=== PATIENT | female | born 1930 ===

== ENCOUNTER 2019-01-03 18:36 | Inpatient (IN) | payer MEDICARE, MEDICAID ==
[2019-01-03 20:54] LABS: VENOUS BLOOD GAS PCO2 59 mmHg (40-60); VENOUS BLOOD GAS PO2 38 mm/Hg (30-55); VENOUS BLOOD PH 7.36 (7.32-7.43)
--- NOTE | 2019-01-03 21:13 | ED PDOC ---
HPI: Influenza Time Seen by Provider: 01/03/19 19:35 Chief Complaint: Flu-like Symptoms Chief Complaint (Provider): Flu-like Symptoms History Per: Family Exam Limitations: clinical condition Additional complaint(s):: Gunjan lee is a 88 year old female with a past medical history of HTN and arthritis, who presents to the emergency department complaining of cough, fever that started today. History was obtained by family, as patient is a poor historian is is a bit confused. Family noticed patient to be a bit confused, coughing, subjective fevers and chest pain that started earlier today. Patient currently denies having any chest pain. PMD: Rajiv Moore Past Medical History Reviewed: Historical Data, Nursing Documentation, Vital Signs Vital Signs: Last Vital Signs Temp 100.9 F H 01/03/19 18:40 Pulse 81 01/03/19 18:40 Resp 18 01/03/19 18:40 BP 184/75 H 01/03/19 18:40 Pulse Ox 100 01/03/19 18:40 - Medical History PMH: Arthritis, HTN Other PMH: IBS - Surgical History Surgical History: Appendectomy, Cholecystectomy, - Family History Family History: States: Unknown Family Hx - Home Medications Home Medications: Ambulatory Orders Medication Instructions Recorded RX: Donepezil HCl [Aricept Odt] 10 mg PO DAILY 01/03/19 RX: Gabapentin [Neurontin] 100 mg PO BID 01/03/19 RX: LORazepam [Ativan] 2 mg PO BID 01/03/19 RX: Meclizine [Antivert] 12.5 mg PO BID PRN 01/03/19 RX: Metoprolol Succinate XL 50 mg PO DAILY 01/03/19 [Toprol XL] RX: Oxybutynin [Ditropan Tab] 5 mg PO DAILY 01/03/19 RX: Oxybutynin [Ditropan Tab] 10 mg PO HS 01/03/19 RX: Primidone [Mysoline] 50 mg PO QID 01/03/19 RX: Sucralfate [Carafate] 1 gm PO QID 01/03/19 RX: traZODone [Desyrel] 150 mg PO DAILY 01/03/19 Venlafaxine HCl [Venlafaxine HCl 150 mg PO DAILY 01/03/19 ER] - Allergies Allergies/Adverse Reactions: Allergies Allergy/AdvReac Type Severity Reaction Status Date / Time No Known Allergies Allergy Verified 01/03/19 18:43 Review of Systems ROS Statement: Except As Marked, All Systems Reviewed And Found Negative Constitutional: Positive for: Fever, Other (confusion) Cardiovascular: Positive for: Chest Pain Respiratory: Positive for: Cough Physical Exam - Reviewed Nursing Documentation Reviewed: Yes Vital Signs Reviewed: Yes - Physical Exam Appears: Positive for: Non-toxic, No Acute Distress Head Exam: Positive for: ATRAUMATIC, NORMOCEPHALIC Neck: Positive for: Normal, Painless ROM, Supple Cardiovascular/Chest: Positive for: Regular Rate, Rhythm. Negative for: Murmur Respiratory: Positive for: Normal Breath Sounds. Negative for: Respiratory Distress Gastrointestinal/Abdominal: Positive for: Normal Exam, Soft. Negative for: Tenderness Neurologic/Psych: Positive for: Alert, Oriented (x3) Medical Decision Making Medical Decision Making: Time: 2008 Impression: Fever, chest pain, and cough Differential diagnosis includes but is not limited to PNA, sepsis and possible UTI Plan: --Head CT without contrast --Venous Blood gas --EKG --CMP --Magnesium --phosphorous --troponin I --CBC with differential --PTT --PT --Chest xray --Blood culture --urine culture --steel pourer helper --Vital signs Q15 M --Urinary straight catheterization --Influenza A B --Urinalysis Time: 2246 CT FINDINGS: BRAIN Chronic periventricular and subcortical microvascular disease is seen. VENTRICLES: There is generalized parenchymal atrophy noted as demonstrated by symmetrical dilatation of ventricles and sulci. ORBITS: The orbits are unremarkable. SINUSES AND MASTOIDS: The paranasal sinuses and mastoid air cells are clear. BONES: No fracture. SOFT TISSUES: Unremarkable. MISCELLANEOUS: No acute intracranial pathology. IMPRESSION: 1. There is generalized parenchymal atrophy noted as demonstrated by symmetrical dilatation of ventricles and sulci. 2. Chronic periventricular and subcortical microvascular disease is seen. 3. No acute intracranial pathology. Time: 2255 Spoke with hospitalist, for admission to med surg for possible aspirations vs. PNA. Chest xray: as reviewed by me, questionable bilateral lower basal infiltrates. Scribe Attestation: Documented by Eduar Chandler, acting as a scribe for Derek Domingo MD. Provider Scribe Attestation: All medical record entries made by the Scribe were at my direction and personally dictated by me. I have reviewed the chart and agree that the record accurately reflects my personal performance of the history, physical exam, medical decision making, and the department course for this patient. I have also personally directed, reviewed, and agree with the discharge instructions and disposition. - Laboratory Results Result Diagrams: 01/03/19 21:10 01/03/19 21:10 Lab Results: pO2 38 mm/Hg (30-55) 01/03/19 20:51 VBG pH 7.36 (7.32-7.43) 01/03/19 20:51 VBG pCO2 59 mmHg (40-60) 01/03/19 20:51 VBG HCO3 28.9 mmol/L 01/03/19 20:51 VBG Total CO2 35.1 mmol/L (22-28) H 01/03/19 20:51 VBG O2 Sat (Calc) 75.2 % (40-65) H 01/03/19 20:51 VBG Base Excess 6.0 mmol/L (0.0-2.0) H 01/03/19 20:51 VBG Potassium 3.9 mmol/L (3.6-5.2) 01/03/19 20:51 Sodium 132.0 mmol/L (132-148) 01/03/19 20:51 Chloride 98.0 mmol/L (98-107) 01/03/19 20:51 Glucose 121 mg/dL (65-105) H 01/03/19 20:51 Lactate 1.2 mmol/L (0.7-2.1) 01/03/19 20:51 FiO2 21.0 % 01/03/19 20:51 - ECG O2 Sat by Pulse Oximetry: 100 - Critical Care Total Time (In Min): 120 Disposition - Clinical Impression Clinical Impression: Pneumonia - Patient ED Disposition Is Patient to be Admitted: Yes Discussed With DrDeisy: Inocencio Crook Doctor Will See Patient In The: ED Counseled Patient/Family Regarding: Studies Performed, Diagnosis - Disposition Disposition Time: 22:30 Condition: FAIR Forms: [employer] (Uz[place]) - Pt Status Changed To: Hospital Disposition Of: Inpatient - Admit Certification Admit to Inpatient:: After my assessment, the patient will require hospitalization for at least two midnights. This is because of the severity of symptoms shown, intensity of services needed, and/or the medical risk in this patient being treated as an outpatient. - POA Present On Arrival: None Curb-65 Severity Score - CURB-65 Severity Score Confusion: No Bun >19mg/dl (>7mmol/L): No Respiratory Rate greater than/equal to 30: No Systolic BP <90 or Diastolic BP less than/equal 60mmHg: No Age >64: Yes Curb-65 Score: 1 Percentage 30-day mortality: 2.7%
[2019-01-03 21:23] LABS: BASO % 0.2 % (0.0-2.0); EOS % 0.1 % (0.0-4.0); HEMOGLOBIN 12.2 g/dL (12.0-16.0); LYMPH # 0.3 K/uL (1.0-4.3); MEAN CELL VOLUME 92.8 fl (81.0-99.0); MEAN CORPUSCULAR HEMOGLOBIN 31.4 pg (27.0-31.0); MEAN CORPUSCULAR HGB CONC 33.9 g/dL (33.0-37.0); MEAN PLATELET VOLUME 9.7 fl (7.2-11.7); MONO # 0.3 K/uL (0.0-0.8); MONO % 4.7 % (0.0-10.0); NEUT # 6.2 K/uL (1.8-7.0); PLATELET COUNT 233 K/uL (130-400); RBC 3.89 Mil/uL (3.80-5.20); RED CELL DISTRIBUTION WIDTH 14.8 % (11.5-14.5); WHITE BLOOD COUNT 6.8 K/uL (4.8-10.8)
[2019-01-03 21:25] LABS: ALB/GLOB RATIO 1.2 (1.0-2.1); ALBUMIN 4.1 g/dL (3.5-5.0); BLOOD UREA NITROGEN 12 mg/dl (7-17); CALCIUM 9.6 mg/dL (8.4-10.2); GFR NON-AFRICAN AMERICAN > 60
[2019-01-03 21:28] LABS: ALT/SGPT 15 U/L (9-52); AST/SGOT 39 U/L (14-36)
[2019-01-03] MEDS ORDERED: Sodium Chloride 0.9% 1,000 ML IV STA (21:40)
[2019-01-03] MEDS ORDERED: Azithromycin 500 MG in Sodium Chloride 0.9% 250 ML IVPB STA (21:52)
[2019-01-03 22:01] LABS: SQUAMOUS EPITHIAL 1 /hpf (0-5); URINE BILIRUBIN NEGATIVE (NEGATIVE); URINE BLOOD MODERATE (NEGATIVE); URINE CLARITY SLIGHTY-CLOUDY (Clear); URINE COLOR YELLOW (YELLOW); URINE GLUCOSE (UA) NEG (NEGATIVE); URINE LEUKOCYTE ESTERASE NEG Leu/uL (Negative); URINE PROTEIN 30 mg/dL (NEGATIVE); URINE UROBILINOGEN 0.2-1.0 mg/dL (0.2-1.0)
[2019-01-03 22:03] LABS: INR 1.1; PROTHROMBIN TIME 12.6 Seconds (9.8-13.1)
[2019-01-03 22:05] LABS: PARTIAL THROMBOPLASTIN TIME 28.5 Seconds (25.6-37.1)
[2019-01-03] MEDS ORDERED: cefTRIAXone (Rocephin) 1 gm Inj ONE (22:15)
[2019-01-03 22:20] LABS: BANDS 1 % (0-2); LYMPHOCYTE 6 % (20-50); MONOCYTE 3 % (0-10); NEUTROPHIL 90 % (42-75); PLATELET ESTIMATE NORMAL (NORMAL); TOTAL CELLS COUNTED 100
[2019-01-03 22:21] LABS: HYPOCHROMIC SLIGHT; MICROCYTOSIS SLIGHT; OVALOCYTES SLIGHT
[2019-01-03] MEDS ORDERED: Piperacillin/Tazobact 3.375 GM in Sodium Chloride 0.9% 100 ML IVPB STA (22:53)
[2019-01-03] MEDS ORDERED: Piperacillin/Tazobact 3.375 gm Inj IVPB ONE (23:00)
--- NOTE | 2019-01-04 00:25 | CP.PCM.HP ---
<Vipul Smart - Last Filed: 01/04/19 02:42> History of Present Illness - History of Present Illness History of Present Illness: Pt is an 88 y/o female with hx of Dementia, Depression, IBS, HTN, OA, Chronic Cough, Urinary Incontinence brought to ED by daughter who stated patient had a worsening non productive cough for the past few days associated with fevers and chills. Daughter noticed she was very lethargic and slightly confused today. Pt denies any chest pain, LE edema, orthopnea, dysuria, recent travel, sick contacts. PMD: Rajiv Moore PMHX: Dementia, Depression, IBS, HTN, OA, Chronic Cough, Urinary Incontinence SurgHx: Choleycystectomy FMHx: none Social: Walks with waker, lives at home with family, non smoker Present on Admission - Present on Admission Any Indicators Present on Admission: No Past Patient History - Past Social History Smoking Status: Never Smoked - CARDIAC Hx Hypertension: Yes - MUSCULOSKELETAL/RHEUMATOLOGICAL Hx Arthritis: Yes - GASTROINTESTINAL Other/Comment: ibs - PSYCHIATRIC Hx Substance Use: No - SURGICAL HISTORY Hx Appendectomy: Yes Hx Cholecystectomy: Yes - ANESTHESIA Hx Anesthesia: Yes Meds Allergies/Adverse Reactions: Allergies Allergy/AdvReac Type Severity Reaction Status Date / Time No Known Allergies Allergy Verified 01/03/19 18:43 Physical Exam - Constitutional Appears: No Acute Distress - Head Exam Head Exam: NORMAL INSPECTION - Eye Exam Eye Exam: Normal appearance - ENT Exam ENT Exam: Mucous Membranes Moist - Neck Exam Neck exam: Positive for: Full Rom - Respiratory Exam Respiratory Exam: Prolonged Expiratory Phase, Rales (BL lower lung bases). absent: Accessory Muscle Use, Wheezes, Stridor - Cardiovascular Exam Cardiovascular Exam: REGULAR RHYTHM - GI/Abdominal Exam GI & Abdominal Exam: Normal Bowel Sounds, Soft. absent: Tenderness - Extremities Exam Extremities exam: Positive for: pedal edema (+1) - Neurological Exam Neurological exam: Alert, Oriented x3 - Skin Skin Exam: Normal Color Results - Vital Signs Recent Vital Signs: Last Vital Signs Temp 100.7 F H 01/03/19 22:12 Pulse 81 01/03/19 18:40 Resp 18 01/03/19 18:40 BP 184/75 H 01/03/19 18:40 Pulse Ox 100 01/03/19 23:55 - Labs Result Diagrams: 01/03/19 21:10 01/03/19 21:10 Labs: Laboratory Results - last 24 hr 01/03/19 01/03/19 01/03/19 20:51 21:08 21:10 WBC 6.8 RBC 3.89 Hgb 12.2 Hct 36.1 MCV 92.8 MCH 31.4 H MCHC 33.9 RDW 14.8 H Plt Count 233 MPV 9.7 Neut % (Auto) 91.0 H Lymph % (Auto) 4.0 L [place] % (Auto) 4.7 Eos % (Auto) 0.1 Baso % (Auto) 0.2 Neut # (Auto) 6.2 Lymph # (Auto) 0.3 L [place] # (Auto) 0.3 Eos # (Auto) 0.0 Baso # (Auto) 0.0 Neutrophils % (Manual) 90 H Band Neutrophils % 1 Lymphocytes % (Manual) 6 L Monocytes % (Manual) 3 Platelet Estimate Normal Hypochromasia (manual) Slight Microcytosis (manual) Slight Ovalocytes Slight PT INR APTT pO2 38 VBG pH 7.36 VBG pCO2 59 VBG HCO3 28.9 VBG Total CO2 35.1 H VBG O2 Sat (Calc) 75.2 H VBG Base Excess 6.0 H VBG Potassium 3.9 Sodium 132.0 Chloride 98.0 Glucose 121 H Lactate 1.2 FiO2 21.0 Potassium Carbon Dioxide Anion Gap BUN Creatinine Est GFR ( Amer) Est GFR (Non-Af Amer) Random Glucose Calcium Phosphorus Magnesium Total Bilirubin AST ALT Alkaline Phosphatase Troponin I Total Protein Albumin Globulin Albumin/Globulin Ratio Venous Blood Potassium 3.9 Urine Color Urine Clarity Urine pH Ur Specific [place] Urine Protein Urine Glucose (UA) Urine Ketones Urine Blood Urine Nitrate Urine Bilirubin Urine Urobilinogen Ur Leukocyte Esterase Urine RBC (Auto) Urine Microscopic WBC Ur Squamous Epith Cells Influenza Typ A,B (EIA) Negative for flu a/b 01/03/19 01/03/19 01/03/19 21:10 21:53 21:53 WBC RBC Hgb Hct MCV MCH MCHC RDW Plt Count MPV Neut % (Auto) Lymph % (Auto) [place] % (Auto) Eos % (Auto) Baso % (Auto) Neut # (Auto) Lymph # (Auto) [place] # (Auto) Eos # (Auto) Baso # (Auto) Neutrophils % (Manual) Band Neutrophils % Lymphocytes % (Manual) Monocytes % (Manual) Platelet Estimate Hypochromasia (manual) Microcytosis (manual) Ovalocytes PT 12.6 INR 1.1 APTT 28.5 pO2 VBG pH VBG pCO2 VBG HCO3 VBG Total CO2 VBG O2 Sat (Calc) VBG Base Excess VBG Potassium Sodium 134 Chloride 94 L Glucose Lactate FiO2 Potassium 4.4 Carbon Dioxide 29 Anion Gap 15 BUN 12 Creatinine 0.8 Est GFR ( Amer) > 60 Est GFR (Non-Af Amer) > 60 Random Glucose 116 H Calcium 9.6 Phosphorus 3.9 Magnesium 1.9 Total Bilirubin 0.6 AST 39 H ALT 15 Alkaline Phosphatase 107 Troponin I 0.0980 Total Protein 7.5 Albumin 4.1 Globulin 3.4 Albumin/Globulin Ratio 1.2 Venous Blood Potassium Urine Color Yellow Urine Clarity Slighty-cloudy Urine pH 7.0 Ur Specific [place] 1.018 Urine Protein 30 Urine Glucose (UA) Neg Urine Ketones Trace Urine Blood Moderate Urine Nitrate Negative Urine Bilirubin Negative Urine Urobilinogen 0.2-1.0 Ur Leukocyte Esterase Neg Urine RBC (Auto) 27 H Urine Microscopic WBC 1 Ur Squamous Epith Cells 1 Influenza Typ A,B (EIA) Assessment & Plan - Assessment and Plan (Free Text) Assessment: Pt is an 88 y/o female with hx of Dementia, Depression, IBS, HTN, OA, Chronic Co ugh, Urinary Incontinence brought to ED by daughter who stated patient had a worsening non productive cough, fevers, confusion and admitted for Pneumonia and UTI. #Cough -Likely aspiration pneumonia vs CAP -Cxray: Questionable bibasilar LL infiltraes (pending final read) -Febrile, No leukocytosis but neutrophilic predominance on differential -Zosyn fro Aspiration PNU coverage -F/U Blood CX -Azithromycin daily -F/U CBC #Confusion -Likely manifestation of underlying acute illness in setting of baseline dementia -Head CT: no acute findings -Avoid sedative medication -Reorient patient as needed #UTI -UA + RBC 27 -F/U Ucx #HTN -BP elevated in 180's systolic in ED -skipped antihypertensive medication today; will restart home meds -Continue to monitor vitals #Dementia -C/W home meds #Diet -Cardiac <Inocencoi Crook - Last Filed: 01/04/19 02:54> Results - Vital Signs Recent Vital Signs: Last Vital Signs Temp 100.7 F H 01/04/19 01:19 Pulse 64 01/04/19 00:40 Resp 17 01/04/19 01:25 BP 129/48 L 01/04/19 00:40 Pulse Ox 100 01/04/19 01:25 - Labs Result Diagrams: 01/03/19 21:10 01/03/19 21:10 Labs: Laboratory Results - last 24 hr 01/03/19 01/03/19 01/03/19 20:51 21:08 21:10 WBC 6.8 RBC 3.89 Hgb 12.2 Hct 36.1 MCV 92.8 MCH 31.4 H MCHC 33.9 RDW 14.8 H Plt Count 233 MPV 9.7 Neut % (Auto) 91.0 H Lymph % (Auto) 4.0 L [place] % (Auto) 4.7 Eos % (Auto) 0.1 Baso % (Auto) 0.2 Neut # (Auto) 6.2 Lymph # (Auto) 0.3 L [place] # (Auto) 0.3 Eos # (Auto) 0.0 Baso # (Auto) 0.0 Neutrophils % (Manual) 90 H Band Neutrophils % 1 Lymphocytes % (Manual) 6 L Monocytes % (Manual) 3 Platelet Estimate Normal Hypochromasia (manual) Slight Microcytosis (manual) Slight Ovalocytes Slight PT INR APTT pO2 38 VBG pH 7.36 VBG pCO2 59 VBG HCO3 28.9 VBG Total CO2 35.1 H VBG O2 Sat (Calc) 75.2 H VBG Base Excess 6.0 H VBG Potassium 3.9 Sodium 132.0 Chloride 98.0 Glucose 121 H Lactate 1.2 FiO2 21.0 Potassium Carbon Dioxide Anion Gap BUN Creatinine Est GFR ( Amer) Est GFR (Non-Af Amer) Random Glucose Calcium Phosphorus Magnesium Total Bilirubin AST ALT Alkaline Phosphatase Troponin I Total Protein Albumin Globulin Albumin/Globulin Ratio Venous Blood Potassium 3.9 Urine Color Urine Clarity Urine pH Ur Specific [place] Urine Protein Urine Glucose (UA) Urine Ketones Urine Blood Urine Nitrate Urine Bilirubin Urine Urobilinogen Ur Leukocyte Esterase Urine RBC (Auto) Urine Microscopic WBC Ur Squamous Epith Cells Influenza Typ A,B (EIA) Negative for flu a/b 01/03/19 01/03/19 01/03/19 21:10 21:53 21:53 WBC RBC Hgb Hct MCV MCH MCHC RDW Plt Count MPV Neut % (Auto) Lymph % (Auto) [place] % (Auto) Eos % (Auto) Baso % (Auto) Neut # (Auto) Lymph # (Auto) [place] # (Auto) Eos # (Auto) Baso # (Auto) Neutrophils % (Manual) Band Neutrophils % Lymphocytes % (Manual) Monocytes % (Manual) Platelet Estimate Hypochromasia (manual) Microcytosis (manual) Ovalocytes PT 12.6 INR 1.1 APTT 28.5 pO2 VBG pH VBG pCO2 VBG HCO3 VBG Total CO2 VBG O2 Sat (Calc) VBG Base Excess VBG Potassium Sodium 134 Chloride 94 L Glucose Lactate FiO2 Potassium 4.4 Carbon Dioxide 29 Anion Gap 15 BUN 12 Creatinine 0.8 Est GFR ( Amer) > 60 Est GFR (Non-Af Amer) > 60 Random Glucose 116 H Calcium 9.6 Phosphorus 3.9 Magnesium 1.9 Total Bilirubin 0.6 AST 39 H ALT 15 Alkaline Phosphatase 107 Troponin I 0.0980 Total Protein 7.5 Albumin 4.1 Globulin 3.4 Albumin/Globulin Ratio 1.2 Venous Blood Potassium Urine Color Yellow Urine Clarity Slighty-cloudy Urine pH 7.0 Ur Specific [place] 1.018 Urine Protein 30 Urine Glucose (UA) Neg Urine Ketones Trace Urine Blood Moderate Urine Nitrate Negative Urine Bilirubin Negative Urine Urobilinogen 0.2-1.0 Ur Leukocyte Esterase Neg Urine RBC (Auto) 27 H Urine Microscopic WBC 1 Ur Squamous Epith Cells 1 Influenza Typ A,B (EIA) Assessment & Plan - Assessment and Plan (Free Text) Plan: Seem and examined patient personally. Agree with resident's A/P. 88 yo CF with hx of dementia, HTN, urinary incontinence p/w cough and fever and as per family was more confused than usual. In the ED was febrile and had a 90% neutrophilia. CXR suspicious basilar infiltrates. On exam bibailar rales. Possible aspiration pneumonia. Agree with IV Zosyn and Zithromax. Follow cultures.
[2019-01-04] MEDS: Albuterol 0.042% Inhal Sol (1.25 mg/3 mL) UD INH SCH ×3 (05:27→11:07)
[2019-01-04] MEDS: Piperacillin/Tazobact 3.375 GM in Sodium Chloride 0.9% 100 ML IVPB SCH ×3 (06:00→17:03)
[2019-01-04] MEDS ORDERED: Sodium Chloride 3% for Inhalation 4 ML VIAL.NEB IH PRN (07:50)
[2019-01-04] MEDS ORDERED: Azithromycin 500 MG in Sodium Chloride 0.9% 250 ML IVPB SCH (09:00)
[2019-01-04] MEDS: Donepezil HCl 10 MG ODT PO SCH (09:06)
[2019-01-04] MEDS: Venlafaxine 150 mg ER Cap PO SCH (09:07)
[2019-01-04] MEDS: Metoprolol Succinate 50 mg XL Tab PO SCH (09:07)
--- NOTE | 2019-01-04 09:33 | CT ---
Date of service: 01/03/2019 PROCEDURE: CT HEAD WITHOUT CONTRAST. HISTORY: confusion COMPARISON: None available. TECHNIQUE: Axial computed tomography images were obtained through the head/brain without intravenous contrast. Radiation dose: Total exam DLP = 742.46 mGy-cm. This CT exam was performed using one or more of the following dose reduction techniques: Automated exposure control, adjustment of the mA and/or kV according to patient size, and/or use of iterative reconstruction technique. FINDINGS: HEMORRHAGE: No intracranial hemorrhage. BRAIN: There are mild chronic microangiopathic changes. There is no mass, mass effect or abnormal extra-axial fluid collection. There is no territorial infarction. The midline sagittal structures are normal. VENTRICLES: There is mild age-related global parenchymal volume loss and proportionate enlargement of the ventricles and cortical sulci. CALVARIUM: There is no calvarial fracture or extracranial soft tissue swelling. PARANASAL SINUSES: Predominantly clear. MASTOID AIR CELLS: Predominantly clear. OTHER FINDINGS: None. IMPRESSION: No acute intracranial abnormality. Mild chronic microangiopathic changes and mild age-related global parenchymal volume loss. A preliminary report was provided by [facility].
--- NOTE | 2019-01-04 10:00 | RAD ---
Date of service: 01/03/2019 HISTORY: Cough and fever COMPARISON: No prior. TECHNIQUE: Chest PA and lateral FINDINGS: LINES AND TUBES: None. LUNG AND PLEURA: The lungs are well inflated and clear. There is mild pulmonary venous congestion no pleural effusion or pneumothorax. HEART AND MEDIASTINUM: There is moderate cardiomegaly. No aortic atherosclerotic calcifications present. The hilar and mediastinal contours are within normal limits. SKELETAL STRUCTURES: The bony structures are within normal limits for the patient's age. VISUALIZED UPPER ABDOMEN: Normal. OTHER FINDINGS: None. IMPRESSION: No active pulmonary disease. Moderate cardiomegaly and mild pulmonary venous congestion.
--- NOTE | 2019-01-04 10:14 | RAD ---
Date of service: 01/03/2019 HISTORY: Sepsis Patient COMPARISON: Soren 04/24/2018. FINDINGS: LUNGS: The lungs are well inflated. There is mild pulmonary venous congestion. PLEURA: No pleural effusions or pneumothorax. CARDIOVASCULAR: Persistent moderate cardiomegaly. There are aortic atherosclerotic calcifications present. OSSEOUS STRUCTURES: Within normal limits for the patient's age. VISUALIZED UPPER ABDOMEN: Normal. OTHER FINDINGS: None. IMPRESSION: No active pulmonary disease. Moderate cardiomegaly and mild pulmonary venous congestion.
[2019-01-04] MEDS ORDERED: Albuterol-Ipratrop 3 mg / 0.5 (3 ml) UD INH STA (10:27)
--- NOTE | 2019-01-04 11:32 | CP.PCM.PN ---
<Leonardo Clemens - Last Filed: 01/04/19 14:39> Subjective - Date & Time of Evaluation Date of Evaluation: 01/04/19 Time of Evaluation: 09:40 - Subjective Subjective: Patient seen and evaluated at bedside in AM. Patient lying in bed. NAD. Pt had fever of 100.7 yesterday which resolved with tylenol. Patient is afebile so far today. Patient continues to have cough which is nonproductive with associated SOB and wheezing. Denies any CP, headache, chills, nausea, vomiting, diarrhea. Patient also has elevated BP 170s/70. Patient will be resumed on home medications today. Objective - Vital Signs/Intake and Output Vital Signs (last 24 hours): Temp Pulse Resp BP Pulse Ox 97.6 F 79 20 178/67 H 89 L 01/04/19 08:46 01/04/19 10:44 01/04/19 08:46 01/04/19 10:44 01/04/19 10:44 - Medications Medications: Current Medications Albuterol Sulfate (Albuterol 0.042% Inhal Bernadine (1.25mg/3ml) Ud) 1.25 mg INH RQ4 [facility] Last Admin: 01/04/19 11:07 Dose: 1.25 mg Azithromycin (Zithromax) 500 mg PO DAILY [facility] Last Admin: 01/04/19 09:08 Dose: 500 mg Donepezil HCl (Aricept Odt) 10 mg PO DAILY [facility] Last Admin: 01/04/19 09:06 Dose: 10 mg Piperacillin Sod/Tazobactam (Sod 3.375 gm/ Sodium Chloride) 100 mls @ 100 ml s/hr IVPB Q6H [facility]; Protocol Last Admin: 01/04/19 06:00 Dose: 100 mls/hr Lisinopril (Zestril) 10 mg PO DAILY [facility] Metoprolol Succinate (Toprol Xl) 50 mg PO DAILY [facility] Last Admin: 01/04/19 09:07 Dose: 50 mg Oxybutynin Chloride (Ditropan Tab) 5 mg PO DAILY [facility] Last Admin: 01/04/19 09:07 Dose: 5 mg Oxybutynin Chloride (Ditropan Tab) 10 mg PO [facility] Venlafaxine HCl (Effexor Xr) 150 mg PO DAILY [facility] Last Admin: 01/04/19 09:07 Dose: 150 mg - Labs Labs: 01/03/19 21:10 01/03/19 21:10 PT 12.6 Seconds (9.8-13.1) 01/03/19 21:53 INR 1.1 01/03/19 21:53 APTT 28.5 Seconds (25.6-37.1) 01/03/19 21:53 - Constitutional Appears: Well, No Acute Distress - Head Exam Head Exam: ATRAUMATIC, NORMAL INSPECTION, NORMOCEPHALIC - Eye Exam Eye Exam: EOMI - ENT Exam ENT Exam: Mucous Membranes Moist - Respiratory Exam Respiratory Exam: Rhonchi, Wheezes. absent: Chest Wall Tenderness - Cardiovascular Exam Cardiovascular Exam: REGULAR RHYTHM, +S1, +S2 - GI/Abdominal Exam GI & Abdominal Exam: Soft, Normal Bowel Sounds - Neurological Exam Neurological Exam: Alert, Awake, Oriented x3 - Psychiatric Exam Psychiatric exam: Normal Affect, Normal Mood - Skin Skin Exam: Dry, Intact, Normal Color, Warm Assessment and Plan - Assessment and Plan (Free Text) Assessment: Pt is an 88 y/o female with hx of Dementia, Depression, IBS, HTN, OA, Chronic Cough, Urinary Incontinence brought to ED by daughter who stated patient had a worsening non productive cough, fevers, confusion and admitted for Pneumonia and UTI. Plan: Cough -Likely 2/2 CAP vs aspiration pneumonia vs acute bronchitis -CXR: Questionable bibasilar LL infiltraes(No active disease as per final read) -Febrile, No leukocytosis but neutrophilic predominance on differential -S/P Duoneb once today -Continue with azithromycin and Zosyn(day 1) -F/U CBC, strep urine ag, legionella, mycoplasma, sputum Cx Shortness of breath - Likely due to CHF vs pneumonitis, Pro BNP 1590 - CXR: Cardiomegaly with mild venous congestion - EKG: NSR, Borderline EKG, Possible LVH - Echo: Marked cardiomegaly. Minor vague ground-glass opacities seen in the left lower lung field and left lingular region. Enlarged lobulated thyroid gland left lobe - S/P albuterol, Solumedrol 125 mg IV once and Lasix 20 IVP on 01/04 - Start Zopanex Q8 - Lasix 20 mg IVP - Solumedrol 60 mg IV - Monitor VS Confusion -Improved -Likely manifestation of underlying acute illness in setting of baseline dementia -Head CT: no acute findings -Avoid sedative medication HTN -Controlled -Started on Metoprolol XL 50 mg Po daily -Started on Lisinopril 10 mg daily -Continue to monitor vitals UTI -UA + RBC 27 -F/U UCx Dementia -C/W home meds Diet -heart healthy diet DVT prophylaxis - Lovenox 40 mg SC daily <Maria Isabel Goss - Last Filed: 01/04/19 16:34> Objective - Vital Signs/Intake and Output Vital Signs (last 24 hours): Temp Pulse Resp BP Pulse Ox 97.4 F L 69 18 149/70 94 L 01/04/19 16:00 01/04/19 16:00 01/04/19 16:00 01/04/19 16:00 01/04/19 16:00 - Medications Medications: Current Medications Azithromycin (Zithromax) 500 mg PO DAILY [facility] Last Admin: 01/04/19 09:08 Dose: 500 mg Donepezil HCl (Aricept Odt) 10 mg PO DAILY [facility] Last Admin: 01/04/19 09:06 Dose: 10 mg Enoxaparin Sodium (Lovenox) 40 mg SC DAILY [facility]; Protocol Last Admin: 01/04/19 14:11 Dose: 40 mg Furosemide (Lasix) 20 mg IVP DAILY [facility] Piperacillin Sod/Tazobactam (Sod 3.375 gm/ Sodium Chloride) 100 mls @ 100 mls/hr IVPB Q6H [facility]; Protocol Last Admin: 01/04/19 14:10 Dose: 100 mls/hr Levalbuterol HCl (Xopenex) 0.63 mg INH RQ8 [facility] Last Admin: 01/04/19 15:26 Dose: 0.63 mg Lisinopril (Zestril) 10 mg PO DAILY [facility] Last Admin: 01/04/19 11:30 Dose: 10 mg Methylprednisolone (Solu-Medrol) 60 mg IVP DAILY [facility] Metoprolol Succinate (Toprol Xl) 50 mg PO DAILY [facility] Last Admin: 01/04/19 09:07 Dose: 50 mg Oxybutynin Chloride (Ditropan Tab) 5 mg PO DAILY [facility] Last Admin: 01/04/19 09:07 Dose: 5 mg Oxybutynin Chloride (Ditropan Tab) 10 mg PO HS [facility] Venlafaxine HCl (Effexor Xr) 150 mg PO DAILY [facility] Last Admin: 01/04/19 09:07 Dose: 150 mg - Labs Labs: 01/03/19 21:10 01/03/19 21:10 PT 12.6 Seconds (9.8-13.1) 01/03/19 21:53 INR 1.1 01/03/19 21:53 APTT 28.5 Seconds (25.6-37.1) 01/03/19 21:53 Attending/Attestation - Attestation I have personally seen and examined this patient.: Yes I have fully participated in the care of the patient.: Yes I have reviewed all pertinent clinical information, including history, physical exam and plan: Yes Notes (Text): Bacterial Pneumonia vs Acute Bronchitis CHF exacerbation prob systolic dysfunction Dementia, chronic , prob Alzheimer's - cont IV Zosyn and Azithro - Chest CT - Pro BNP - ECHO - start low dose Lasix - IV Solumedrol given -Xopenex - Physical therapy, Speech tx
[2019-01-04] MEDS ORDERED: methylPREDNISolone 125 MG in Sodium Chloride 0.9% 50 ML IV ONE (12:46)
--- NOTE | 2019-01-04 13:58 | CT ---
Date of service: 01/04/2019 PROCEDURE: CT Chest without contrast HISTORY: Cardiomegaly; CHF. COMPARISON: Correlation made with chest radiograph obtained 01/03/2019. TECHNIQUE: Contiguous axial images were obtained through the chest without intravenous contrast enhancement. Sagittal and coronal reconstructions were performed. Radiation dose: Total exam DLP = 466.96 mGy-cm. This CT exam was performed using one or more of the following dose reduction techniques: Automated exposure control, adjustment of the mA and/or kV according to patient size, and/or use of iterative reconstruction technique. FINDINGS: LUNGS: Minor vague ground-glass opacities seen in the left lower lobe/left lingular region; rule out sequela of air trapping, pneumonitis or possibly some residual but improved pulmonary venous congestive changes.. MEDIASTINUM: Heart is markedly enlarged... Ascending thoracic aorta measures approximately 3.2 cm and descending thoracic aorta measures approximately 2.7 cm. Minor aortic atherosclerotic calcification. Pulmonary trunk measures approximately 3.14 cm The trachea is midline and patent with no large central endoluminal lesions. Few small nonspecific mediastinal lymph nodes are present. Valuation for hilar adenopathy is slightly limited due to the lack of circulating intravenous contrast material. There is moderate heterogeneous enlargement left lobe thyroid gland extending into the isthmus region. There also focal spectral calcifications of within the inferior aspect of the left lobe. There is also lobular heterogeneous large mid right lobe thyroid gland of extending medially into the isthmus. Recommend of the follow-up thyroid ultrasound further evaluation and to exclude the possibility of a thyroid malignancy PLEURA: No pleural fluid. No pneumothorax. BONES: Mild multilevel degenerative spondylosis of the lower cervical as well as thoracic and upper lumbar spine. UPPER ABDOMEN: Grossly unremarkable. OTHER FINDINGS: None. IMPRESSION: Marked cardiomegaly. Minor vague ground-glass opacities seen in the left lower lung field and left lingular region nonspecific. Rule out sequela of air trapping, pneumonitis or some residual pulmonary venous congestive changes.. Enlarged lobulated thyroid gland left lobe larger than right with several tiny calcifications seen in the inferior aspect left lobe. Recommend follow-up thyroid ultrasound for further evaluation as detailed above.
[2019-01-04] MEDS: Enoxaparin 40 mg Syringe SC SCH (14:11)
[2019-01-04] MEDS ORDERED: Levalbuterol 0.63 MG/3 ML Inhal Soln UD INH SCH (15:00)
--- NOTE | 2019-01-04 15:31 | CARD ---
APPROVED REPORT Date of service: 01/04/2019 EKG Measurement Heart [id number] <Conclusion> Normal sinus rhythm Minimal voltage criteria for LVH, may be normal variant Borderline ECG
[2019-01-04] MEDS: Levalbuterol 0.63 MG/3 ML Inhal Soln UD INH SCH (19:50)
[2019-01-05] MEDS: Piperacillin/Tazobact 3.375 GM in Sodium Chloride 0.9% 100 ML IVPB SCH ×4 (00:24→17:14)
[2019-01-05] MEDS: Levalbuterol 0.63 MG/3 ML Inhal Soln UD INH SCH ×5 (01:32→19:08)
[2019-01-05 05:57] LABS: BASO % 0.1 % (0.0-2.0); HEMOGLOBIN 11.3 g/dL (12.0-16.0); LYMPH # 0.4 K/uL (1.0-4.3); LYMPH % 9.6 % (20.0-40.0); MEAN CELL VOLUME 94.7 fl (81.0-99.0); MEAN CORPUSCULAR HEMOGLOBIN 31.6 pg (27.0-31.0); MEAN CORPUSCULAR HGB CONC 33.4 g/dL (33.0-37.0); MEAN PLATELET VOLUME 9.4 fl (7.2-11.7); MONO # 0.2 K/uL (0.0-0.8); MONO % 5.8 % (0.0-10.0); NEUT # 3.2 K/uL (1.8-7.0); NEUT % 84.5 % (50.0-75.0); NRBC % 0.1 % (0.0-0.0); RBC 3.56 Mil/uL (3.80-5.20); RED CELL DISTRIBUTION WIDTH 14.5 % (11.5-14.5); WHITE BLOOD COUNT 3.8 K/uL (4.8-10.8)
[2019-01-05 06:11] LABS: ALB/GLOB RATIO 1.2 (1.0-2.1); ALBUMIN 3.4 g/dL (3.5-5.0); ALT/SGPT 25 U/L (9-52); AST/SGOT 29 U/L (14-36); BLOOD UREA NITROGEN 27 mg/dl (7-17); CALCIUM 8.9 mg/dL (8.4-10.2); GFR NON-AFRICAN AMERICAN 52
[2019-01-05] MEDS: Enoxaparin 40 mg Syringe SC SCH (08:48)
[2019-01-05] MEDS: Venlafaxine 150 mg ER Cap PO SCH (08:49)
[2019-01-05] MEDS: Donepezil HCl 10 MG ODT PO SCH (08:49)
[2019-01-05] MEDS: Metoprolol Succinate 50 mg XL Tab PO SCH (08:50)
[2019-01-05] MEDS ORDERED: methylPREDNISolone 60 MG in Sodium Chloride 0.9% 50 ML IV SCH (09:00)
--- NOTE | 2019-01-05 09:18 | CP.PCM.PN ---
<Leonardo Clemens - Last Filed: 01/05/19 10:59> Subjective - Date & Time of Evaluation Date of Evaluation: 01/05/19 Time of Evaluation: 08:45 - Subjective Subjective: Patient seen and examined at bedside in AM. Patient lying in bed with elevated head of bed. NAD. Patient had episode of abdominal pain last evening which improved with Ativan 2 gm. Patient reports improvement in cough and SOB. Currently on O2 2L with O2 sat 97% and 93% on RA. Patient denies any CP, dizziness, abdominal pain, nausea, vomiting, pedal edema. Tolerating dysphagia diet well PO. Objective - Vital Signs/Intake and Output Vital Signs (last 24 hours): Temp Pulse Resp BP Pulse Ox 98.4 F 65 20 167/69 H 96 01/05/19 08:48 01/05/19 08:48 01/05/19 08:48 01/05/19 08:48 01/05/19 08:48 - Medications Medications: Current Medications Azithromycin (Zithromax) 500 mg PO DAILY [facility] Last Admin: 01/05/19 08:50 Dose: 500 mg Donepezil HCl (Aricept Odt) 10 mg PO DAILY [facility] Last Admin: 01/05/19 08:49 Dose: 10 mg Enoxaparin Sodium (Lovenox) 40 mg SC DAILY [facility]; Protocol Last Admin: 01/05/19 08:48 Dose: 40 mg Furosemide (Lasix) 20 mg IVP DAILY [facility] Piperacillin Sod/Tazobactam (Sod 3.375 gm/ Sodium Chloride) 100 mls @ 100 mls /hr IVPB Q6H [facility]; Protocol Last Admin: 01/05/19 05:02 Dose: 100 mls/hr Levalbuterol HCl (Xopenex) 0.63 mg INH RQ6 [facility] Last Admin: 01/05/19 07:41 Dose: 0.63 mg Lisinopril (Zestril) 10 mg PO DAILY [facility] Last Admin: 01/05/19 08:49 Dose: 10 mg Lorazepam (Ativan) 2 mg PO BID [facility] Last Admin: 01/05/19 08:53 Dose: 2 mg Metoprolol Succinate (Toprol Xl) 50 mg PO DAILY [facility] Last Admin: 01/05/19 08:50 Dose: 50 mg Oxybutynin Chloride (Ditropan Tab) 5 mg PO DAILY [facility] Last Admin: 01/05/19 08:49 Dose: 5 mg Oxybutynin Chloride (Ditropan Tab) 10 mg PO HS [facility] Last Admin: 01/04/19 21:35 Dose: 10 mg Venlafaxine HCl (Effexor Xr) 150 mg PO DAILY [facility] Last Admin: 01/05/19 08:49 Dose: 150 mg - Labs Labs: 01/05/19 04:41 01/05/19 04:41 PT 12.6 Seconds (9.8-13.1) 01/03/19 21:53 INR 1.1 01/03/19 21:53 APTT 28.5 Seconds (25.6-37.1) 01/03/19 21:53 - Constitutional Appears: Well, No Acute Distress - Head Exam Head Exam: ATRAUMATIC, NORMAL INSPECTION, NORMOCEPHALIC - Eye Exam Eye Exam: EOMI - ENT Exam ENT Exam: Mucous Membranes Moist - Neck Exam Neck Exam: Full ROM - Respiratory Exam Respiratory Exam: Wheezes. absent: Chest Wall Tenderness, Respiratory Distress - Cardiovascular Exam Cardiovascular Exam: REGULAR RHYTHM, +S1, +S2 - GI/Abdominal Exam GI & Abdominal Exam: Soft, Normal Bowel Sounds. absent: Distended, Tenderness - Extremities Exam Extremities Exam: absent: Pedal Edema, Tenderness - Back Exam Back Exam: NORMAL INSPECTION - Neurological Exam Neurological Exam: Alert, Awake, Oriented x3 - Psychiatric Exam Psychiatric exam: Normal Affect, Normal Mood - Skin Skin Exam: Dry, Intact, Normal Color, Warm Assessment and Plan - Assessment and Plan (Free Text) Assessment: Pt is an 88 y/o female with hx of Dementia, Depression, IBS, HTN, OA, Chronic Cough, Urinary Incontinence brought to ED by daughter who stated patient had a worsening non productive cough, fevers, confusion and admitted for Pneumonia. Plan: Acute bronchitis vs bacterial pneumonia -CXR: Questionable bibasilar LL infiltraes(No active disease as per final read) -CT Chest: Minor vague ground-glass opacities seen in the left lower lung field and left lingular region. Enlarged lobulated thyroid gland left lobe -Continue with azithromycin and Zosyn(day 2) -Legionella Neg, Blood Cx neg day 1 -F/U strep urine ag, mycoplasma, sputum Cx Shortness of breath - Likely due to CHF vs interstitial fibrosis vs pneumonitis - CXR: Cardiomegaly with mild venous congestion - EKG: NSR, Borderline EKG, Possible LVH - CT Chest: Marked cardiomegaly. Minor vague ground-glass opacities seen in the left lower lung field and left lingular region. Enlarged lobulated thyroid gland left lobe - S/P albuterol, Solumedrol 125 mg IV once and Lasix 20 IVP on 01/04 - Switch Zopanex to Q6 from Q8hr - Continue Solumedrol 60 mg IV Q12H - D/C Lasix 20 mg IVP - F/U echocardiogram Enlarged thyroid - TSH 0.05, Free T4 1.08 - F/U Thyroid US results. HTN -Controlled -Continue on Metoprolol XL 50 mg Po daily -Continue on Lisinopril 10 mg daily -Continue to monitor vitals UTI -UA + RBC 27 -UCx no growth Dementia -C/W home meds Diet -heart healthy diet Prophylaxis DVT - Lovenox 40 mg SC daily GI - Pantoprazole 40 mg IVP daily <Thais Koenig - Last Filed: 01/06/19 11:29> Objective - Vital Signs/Intake and Output Vital Signs (last 24 hours): Temp Pulse Resp BP Pulse Ox 98.1 F 52 L 20 174/68 H 99 01/06/19 08:27 01/06/19 08:27 01/06/19 08:27 01/06/19 08:27 01/06/19 08:27 - Medications Medications: Current Medications Azithromycin (Zithromax) 500 mg PO DAILY [facility] Last Admin: 01/06/19 08:20 Dose: 500 mg Donepezil HCl (Aricept Odt) 10 mg PO DAILY [facility] Last Admin: 01/06/19 08:20 Dose: 10 mg Enoxaparin Sodium (Lovenox) 40 mg SC DAILY [facility]; Protocol Last Admin: 01/06/19 08:19 Dose: 40 mg Furosemide (Lasix) 20 mg IVP DAILY [facility] Piperacillin Sod/Tazobactam (Sod 3.375 gm/ Sodium Chloride) 100 mls @ 100 mls/hr IVPB Q6H [facility]; Protocol Last Admin: 01/06/19 11:06 Dose: 100 mls/hr Levalbuterol HCl (Xopenex) 0.63 mg INH RQ6 [facility] Last Admin: 01/06/19 07:48 Dose: 0.63 mg Lisinopril (Zestril) 10 mg PO DAILY [facility] Last Admin: 01/06/19 08:21 Dose: 10 mg Lorazepam (Ativan) 2 mg PO BID [facility] Last Admin: 01/06/19 08:25 Dose: 2 mg Methylprednisolone (Solu-Medrol) 60 mg IV Q12 [facility] Last Admin: 01/06/19 08:22 Dose: 60 mg Metoprolol Succinate (Toprol Xl) 50 mg PO DAILY [facility] Last Admin: 01/06/19 08:20 Dose: 50 mg Oxybutynin Chloride (Ditropan Tab) 5 mg PO DAILY [facility] Last Admin: 01/06/19 08:21 Dose: 5 mg Oxybutynin Chloride (Ditropan Tab) 10 mg PO HS [facility] Last Admin: 01/05/19 21:54 Dose: 10 mg Pantoprazole Sodium (Protonix Ec Tab) 40 mg PO DAILY [facility] Last Admin: 01/06/19 08:21 Dose: 40 mg Venlafaxine HCl (Effexor Xr) 150 mg PO DAILY [facility] Last Admin: 01/06/19 08:21 Dose: 150 mg - Labs Labs: 01/05/19 04:41 01/05/19 04:41 PT 12.6 Seconds (9.8-13.1) 01/03/19 21:53 INR 1.1 01/03/19 21:53 APTT 28.5 Seconds (25.6-37.1) 01/03/19 21:53 Attending/Attestation - Attestation I have personally seen and examined this patient.: Yes I have fully participated in the care of the patient.: Yes I have reviewed all pertinent clinical information, including history, physical exam and plan: Yes Notes (Text): 01/06/19 11:29 agree with findings and plan as above.
[2019-01-05] MEDS ORDERED: methylPREDNISolone 60 MG in Sodium Chloride 0.9% 50 ML IVPB SCH (09:45)
--- NOTE | 2019-01-05 12:17 | US ---
Date of service: 01/04/2019 HISTORY: Enlarged thyroid lobe on CT chest TECHNIQUE: Sonographic evaluation of the thyroid gland. COMPARISON: January 04, 2019 CT thorax. Summary of findings on the comparison examination: Enlarged lobulated thyroid gland left lobe larger than right with several tiny calcifications seen in the inferior aspect left lobe FINDINGS: RIGHT LOBE: Measures 1.9 x 2 x 4.4 cm. Heterogenous echotexture, normal vascularity Nodules: 1. Complex, cystic nodule upper pole 4 x 5 x 5 mm. 2. Cystic nodule midpole 3 x 3 x 4 mm. 3. Isoechoic nodule midpole region 6 x 6 x 7 mm. LEFT LOBE: Measures 3.2 x 2.6 x 6.2 cm. Heterogenous echotexture, normal vascularity Nodules: 1. Primarily solid heterogeneous nodule with cystic components mid lower pole region 2.2 x 3.4 x 2.8 cm. ISTHMUS: Measures 5.4 mm. Nodules: 1. Solid nodule 0.9 x 1.2 x 1.1 cm OTHER FINDINGS: None . IMPRESSION: 1. Heterogeneous gland bilaterally. 2. Left lobe enlarged, top-normal right lobe. 3. Multiple thyroid nodules bilaterally as well as the isthmus (5). 4. Dominant solid/cystic nodule lower pole left lobe 2.2 x 3.4 x 2.8 cm. Recommendations for follow-up: 1. Radionuclide Scan to assess Thyroid function and to evaluate the thyroid for the presence of hot or cold nodules. 2. Fine needle aspiration (FNA) should also be considered as an invasive diagnostic tool in the assessment of findings described above.
[2019-01-05] MEDS ORDERED: Sodium Chloride 3% for Inhalation 4 ML VIAL.NEB IH PRN (22:33)
--- NOTE | 2019-01-05 22:35 | CARD ---
APPROVED REPORT Date of service: 01/05/2019 EXAM: Two-dimensional and M-mode echocardiogram with Doppler and color Doppler. Other Information Quality : GoodRhythm : NSR INDICATION Dyspnea Cardiomegaly 2D DIMENSIONS IVSd1.20 (0.7-1.1cm)LVDd4.85 (3.9-5.9cm) LVOT Diameter2.15 (1.8-2.4cm)PWd1.23 (0.7-1.1cm) IVSs1.78 (0.8-1.2cm)LVDs3.20 (2.5-4.0cm) FS (%) 34.1 %PWs1.67 (0.8-1.2cm) M-Mode DIMENSIONS Left Atrium (MM)4.53 (2.5-4.0cm)IVSd1.47 (0.7-1.1cm) Aortic Root2.71 (2.2-3.7cm)LVDd4.91 (4.0-5.6cm) Aortic Cusp Exc.1.65 (1.5-2.0cm)PWd1.47 (0.7-1.1cm) IVSs2.06 cmFS (%) 41 % LVDs2.88 (2.0-3.8cm)PWs1.85 cm Aortic Valve AoV Peak Ehlfxwno314.6cm/sAoV VTI43.1cmAO Peak GR.19mmHg LVOT Peak Iynbecrc395.4cm/sLVOT VTI24.60cmAO Mean GR.11mmHg IRENE (VMAX)1.19jm0UXB (VTI)1.28br7EH P 1/2 Zlcl530qz Mitral Valve MV E Vnkrulvs14.8cm/sMV DECEL [id number] A Azizmfzh59.4cm/s MV QLL16rrN/A ratio0.9MVA (PHT)3.39cm2 TDI Lateral E' Peak V6.93cm/sMedial E' Peak V5.38cm/sE/Lateral E'10.9 E/Medial E'14.1 LEFT VENTRICLE The left ventricle is normal size. There is mild concentric left ventricular hypertrophy. The left ventricular systolic function is normal. The estimated ejection fraction is 55-60% No regional wall motion abnormalities noted.. Transmitral Doppler flow pattern is Grade I-abnormal relaxation pattern. No left ventricle thrombus noted on this study. There is no ventricular septal defect visualized. There is no left ventricular aneurysm. There is no mass noted in the left ventricle. RIGHT VENTRICLE The right ventricle is normal size. There is normal right ventricular wall thickness. The right ventricular systolic function is normal. ATRIA The left atrium is mildly dilated. The right atrium size is normal. The interatrial septum is intact with no evidence for an atrial septal defect. AORTIC VALVE The aortic valve is normal in structure. Mild to moderate aortic regurgitation is present. There is no aortic valvular stenosis. There is no aortic valvular vegetation. MITRAL VALVE The mitral valve is normal in structure. There is no evidence of mitral valve prolapse. There is no mitral valve stenosis. There is no mitral valve regurgitation noted. TRICUSPID VALVE The tricuspid valve is normal in structure. There is no tricuspid valve regurgitation noted. There is no tricuspid valve prolapse or vegetation. There is no tricuspid valve stenosis. PULMONIC VALVE The pulmonary valve is normal in structure. There is no pulmonic valvular regurgitation. There is no pulmonic valvular stenosis. GREAT VESSELS The aortic root is normal in size. The ascending aorta is normal in size. The pulmonary artery is normal. The IVC is normal in size and collapses >50% with inspiration. PERICARDIAL EFFUSION There is no pericardial effusion. There is no pleural effusion. <Conclusion> There is mild concentric left ventricular hypertrophy. The estimated ejection fraction is 55-60% Transmitral Doppler flow pattern is Grade I-abnormal relaxation pattern. The left atrium is mildly dilated. Mild to moderate aortic regurgitation is present. There is no tricuspid valve regurgitation noted. The IVC is normal in size and collapses >50% with inspiration.
[2019-01-06] MEDS: Piperacillin/Tazobact 3.375 GM in Sodium Chloride 0.9% 100 ML IVPB SCH ×4 (00:12→17:21)
[2019-01-06] MEDS: Levalbuterol 0.63 MG/3 ML Inhal Soln UD INH SCH ×4 (02:20→19:48)
[2019-01-06] MEDS: Enoxaparin 40 mg Syringe SC SCH (08:19)
[2019-01-06] MEDS: Metoprolol Succinate 50 mg XL Tab PO SCH (08:20)
[2019-01-06] MEDS: Donepezil HCl 10 MG ODT PO SCH (08:20)
[2019-01-06] MEDS: Venlafaxine 150 mg ER Cap PO SCH (08:21)
[2019-01-06] MEDS: Pantoprazole 40 mg EC Tab PO SCH (08:21)
[2019-01-06] MEDS ORDERED: EnalaprilAT 1.25 mg/ml Inj IV ONE ×2 (16:54→17:55)
--- NOTE | 2019-01-06 17:22 | CP.PCM.DIS ---
<Leonardo Clemens - Last Filed: 01/06/19 17:29> Provider - Provider Date of Admission: 01/03/19 22:53 Attending physician: Inocencio Crook MD Consults: 01/04/19 02:13 Case Management Referral Routine Comment: Physician Instructions: Reason For Exam: home health aide 6 days/week for 5 hours/day Reason for Referral: Discharge Planning Time Spent in preparation of Discharge (in minutes): 35 Diagnosis - Discharge Diagnosis (1) Pneumonia Status: Acute (2) Pneumonitis Status: Acute (3) HTN (hypertension) Status: Chronic (4) CHF (congestive heart failure) Status: Acute (5) Wheezing Status: Acute Hospital Course - Lab Results Lab Results: Micro Results 01/05/19 08:01 Sputum Gram Stain - Final 01/03/19 21:15 Blood Blood Culture - Preliminary NO GROWTH AFTER 48 HOURS 01/03/19 21:10 Blood Blood Culture - Preliminary NO GROWTH AFTER 48 HOURS 01/05/19 05:00 Sputum Gram Stain - Final 01/05/19 05:00 Sputum Sputum Culture - Final 01/03/19 21:53 Urine,Catheterized Urine Culture - Final No Growth (<1,000 CFU/ML) Most Recent Lab Values WBC 3.8 K/uL (4.8-10.8) L 01/05/19 04:41 RBC 3.56 Mil/uL (3.80-5.20) L 01/05/19 04:41 Hgb 11.3 g/dL (12.0-16.0) L 01/05/19 04:41 Hct 33.7 % (34.0-47.0) L 01/05/19 04:41 MCV 94.7 fl (81.0-99.0) 01/05/19 04:41 MCH 31.6 pg (27.0-31.0) H 01/05/19 04:41 MCHC 33.4 g/dL (33.0-37.0) 01/05/19 04:41 RDW 14.5 % (11.5-14.5) 01/05/19 04:41 Plt Count 177 K/uL (130-400) 01/05/19 04:41 MPV 9.4 fl (7.2-11.7) 01/05/19 04:41 Neut % (Auto) 84.5 % (50.0-75.0) H 01/05/19 04:41 Lymph % (Auto) 9.6 % (20.0-40.0) L 01/05/19 04:41 [place] % (Auto) 5.8 % (0.0-10.0) 01/05/19 04:41 Eos % (Auto) 0.0 % (0.0-4.0) 01/05/19 04:41 Baso % (Auto) 0.1 % (0.0-2.0) 01/05/19 04:41 Neut # (Auto) 3.2 K/uL (1.8-7.0) 01/05/19 04:41 Lymph # (Auto) 0.4 K/uL (1.0-4.3) L 01/05/19 04:41 [place] # (Auto) 0.2 K/uL (0.0-0.8) 01/05/19 04:41 Eos # (Auto) 0.0 K/uL (0.0-0.7) 01/05/19 04:41 Baso # (Auto) 0.0 K/uL (0.0-0.2) 01/05/19 04:41 Neutrophils % (Manual) 90 % (42-75) H 01/03/19 21:10 Band Neutrophils % 1 % (0-2) 01/03/19 21:10 Lymphocytes % (Manual) 6 % (20-50) L 01/03/19 21:10 Monocytes % (Manual) 3 % (0-10) 01/03/19 21:10 Platelet Estimate Normal (NORMAL) 01/03/19 21:10 Hypochromasia (manual) Slight 01/03/19 21:10 Microcytosis (manual) Slight 01/03/19 21:10 Ovalocytes Slight 01/03/19 21:10 PT 12.6 Seconds (9.8-13.1) 01/03/19 21:53 INR 1.1 01/03/19 21:53 APTT 28.5 Seconds (25.6-37.1) 01/03/19 21:53 pO2 38 mm/Hg (30-55) 01/03/19 20:51 VBG pH 7.36 (7.32-7.43) 01/03/19 20:51 VBG pCO2 59 mmHg (40-60) 01/03/19 20:51 VBG HCO3 28.9 mmol/L 01/03/19 20:51 VBG Total CO2 35.1 mmol/L (22-28) H 01/03/19 20:51 VBG O2 Sat (Calc) 75.2 % (40-65) H 01/03/19 20:51 VBG Base Excess 6.0 mmol/L (0.0-2.0) H 01/03/19 20:51 VBG Potassium 3.9 mmol/L (3.6-5.2) 01/03/19 20:51 Sodium 132.0 mmol/L (132-148) 01/03/19 20:51 Chloride 98.0 mmol/L (98-107) 01/03/19 20:51 Glucose 121 mg/dL (65-105) H 01/03/19 20:51 Lactate 1.2 mmol/L (0.7-2.1) 01/03/19 20:51 FiO2 21.0 % 01/03/19 20:51 Sodium 135 mmol/l (132-148) 01/05/19 04:41 Potassium 3.8 MMOL/L (3.6-5.0) 01/05/19 04:41 Chloride 95 mmol/L (98-107) L 01/05/19 04:41 Carbon Dioxide 30 mmol/L (22-30) 01/05/19 04:41 Anion Gap 14 (10-20) 01/05/19 04:41 BUN 27 mg/dl (7-17) H 01/05/19 04:41 Creatinine 1.0 mg/dl (0.7-1.2) 01/05/19 04:41 Est GFR ( Amer) > 60 01/05/19 04:41 Est GFR (Non-Af Amer) 52 01/05/19 04:41 Random Glucose 170 mg/dL (65-105) H 01/05/19 04:41 Calcium 8.9 mg/dL (8.4-10.2) 01/05/19 04:41 Phosphorus 3.9 mg/dl (2.5-4.5) 01/03/19 21:10 Magnesium 1.9 MG/DL (1.6-2.3) 01/03/19 21:10 Total Bilirubin 0.1 mg/dl (0.2-1.3) L 01/05/19 04:41 AST 29 U/L (14-36) 01/05/19 04:41 ALT 25 U/L (9-52) 01/05/19 04:41 Alkaline Phosphatase 87 U/L (38-126) 01/05/19 04:41 Troponin I 0.0980 ng/mL (0.00-0.120) 01/03/19 21:10 NT-Pro-B Natriuret Pep 1590 pg/ml (0-900) H 01/04/19 11:30 Total Protein 6.4 G/DL (6.3-8.2) 01/05/19 04:41 Albumin 3.4 g/dL (3.5-5.0) L 01/05/19 04:41 Globulin 3.0 gm/dL (2.2-3.9) 01/05/19 04:41 Albumin/Globulin Ratio 1.2 (1.0-2.1) 01/05/19 04:41 Free T4 1.08 ng/dL (0.78-2.19) 01/05/19 04:41 TSH 3rd Generation 0.05 mIU/ML (0.46-4.68) L 01/05/19 04:41 Venous Blood Potassium 3.9 mmol/L (3.6-5.2) 01/03/19 20:51 Urine Color Yellow (YELLOW) 01/03/19 21:53 Urine Clarity Slighty-cloudy (Clear) 01/03/19 21:53 Urine pH 7.0 (5.0-8.0) 01/03/19 21:53 Ur Specific [place] 1.018 (1.003-1.030) 01/03/19 21:53 Urine Protein 30 mg/dL (NEGATIVE) 01/03/19 21:53 Urine Glucose (UA) Neg mg/dL (NEGATIVE) 01/03/19 21:53 Urine Ketones Trace mg/dL (NEGATIVE) 01/03/19 21:53 Urine Blood Moderate (NEGATIVE) 01/03/19 21:53 Urine Nitrate Negative (NEGATIVE) 01/03/19 21:53 Urine Bilirubin Negative (NEGATIVE) 01/03/19 21:53 Urine Urobilinogen 0.2-1.0 mg/dL (0.2-1.0) 01/03/19 21:53 Ur Leukocyte Esterase Neg [place]/uL (Negative) 01/03/19 21:53 Urine RBC (Auto) 27 /hpf (0-3) H 01/03/19 21:53 Urine Microscopic WBC 1 /hpf (0-5) 01/03/19 21:53 Ur Squamous Epith Cells 1 /hpf (0-5) 01/03/19 21:53 Influenza Typ A,B (EIA) Negative for flu a/b (NEGATIVE) 01/03/19 21:08 Ur L.pneumophila Ag Negative (NEGATIVE) 01/04/19 12:00 Mycoplasma pneumon IgG 1.12 (<=0.90) H 01/04/19 08:30 - Hospital Course Hospital Course: 88 y/o F with PMHx of dementia, depression, OBS, HTN, OA, chronic cough and uri nary incontinence brought to ED by daughter due to worsening cough, fever, chills and confusion. Patient evaluated in ED, CXR, EKG, CBC, CMP, UA, Troponins, blood Cx, urine culture done. Patient started on Azithromycin and zosyn for CAP coverage. CT chest showed minor ground glass opacity in left lower lobe and lingular area and enlarged thyroid lobe. CXR and CT also showed cardiomegaly. Patient received Lasix, Solumedrol, Xopenex with improvement in cough and SOB. VSS with O2 sat 93-94% on 2LO2. Patient also undergo dysphagia, speech and PT evaluation. Echocardiogram with EF 55-60%, mild LVH and mild- moderate AR. Thyroid US done showed multiple thyroid nodule which will require outpatient follow up with radionuclide scan and possible FNA. Physical Therapy recommended [facility] upon discharge. Patient to be discharged to [facility] for completion of IV antibiotic treatment and physical therapy. Discharge medications New Medications -Ceftriaxone 1 gm IV daily x 7 days -Azithromycin 500 mg IV daily x 7 days -Xopenex 0.063 Q6hr PRN -Solumedrol 40 IVP daily Taper x 4 days -Nasal cannula 2L O2 Home medications -Donepezil 10 mg PO daily -Oxybutin 10 mg PO HS -Oxybutin 5 mg PO daily -Venlafaxin 150 mg PO daily -Lorazepam 1 mg PO BID -Toprol XL 50 mg PO daily -Losartan/HCTZ 100/12.5 mg PO Daily Discharge Exam - Head Exam Head Exam: ATRAUMATIC, NORMAL INSPECTION, NORMOCEPHALIC - Eye Exam Eye Exam: EOMI, Normal appearance - ENT Exam ENT Exam: Mucous Membranes Moist - Respiratory Exam Respiratory Exam: Rhonchi, Wheezes. absent: Chest Wall Tenderness, Decreased Breath Sounds, Respiratory Distress - Cardiovascular Exam Cardiovascular Exam: REGULAR RHYTHM, +S1, +S2 - GI/Abdominal Exam GI & Abdominal Exam: Normal Bowel Sounds, Soft. absent: Distended, Tenderness - Neurological Exam Neurological exam: Alert, Altered, Oriented x3 - Psychiatric Exam Psychiatric exam: Normal Affect, Normal Mood - Skin Skin Exam: Dry, Intact, Normal Color, Warm Discharge Plan - Discharge Medications Prescriptions: Azithromycin 500mg/250ML NS [Zithromax 500mg in NS [employer]vant[employer]] 500 mg IV Q24H 7 Days bag cefTRIAXone 1 gm [Rocephin 1 gram IVPB] 1 gm IVPB DAILY 7 Days bag Furosemide [Lasix] 20 mg PO Q48H 30 Days tablet methylPREDNISolone [Solu-Medrol] 40 mg IV DAILY 4 Days ml - Follow Up Plan Condition: FAIR Disposition: REHAB FACILITY/REHAB UNIT Instructions: Acute Bronchitis, Community-Acquired Pneumonia, Adult (DC) Additional Instructions: Discharge patient to [facility] for completion of antibiotics and physical therapy. Referrals: Rajiv Moore MD [Family Provider] - <Maria Isabel Goss - Last Filed: 01/06/19 18:38> Provider - Provider Date of Admission: 01/03/19 22:53 Attending physician: Inocencio Crook MD Consults: 01/04/19 02:13 Case Management Referral Routine Comment: Physician Instructions: Reason For Exam: home health aide 6 days/week for 5 hours/day Reason for Referral: Discharge Planning Hospital Course - Lab Results Lab Results: Micro Results 01/05/19 08:01 Sputum Gram Stain - Final 01/03/19 21:15 Blood Blood Culture - Preliminary NO GROWTH AFTER 48 HOURS 01/03/19 21:10 Blood Blood Culture - Preliminary NO GROWTH AFTER 48 HOURS 01/05/19 05:00 Sputum Gram Stain - Final 01/05/19 05:00 Sputum Sputum Culture - Final 01/03/19 21:53 Urine,Catheterized Urine Culture - Final No Growth (<1,000 CFU/ML) Most Recent Lab Values WBC 3.8 K/uL (4.8-10.8) L 01/05/19 04:41 RBC 3.56 Mil/uL (3.80-5.20) L 01/05/19 04:41 Hgb 11.3 g/dL (12.0-16.0) L 01/05/19 04:41 Hct 33.7 % (34.0-47.0) L 01/05/19 04:41 MCV 94.7 fl (81.0-99.0) 01/05/19 04:41 MCH 31.6 pg (27.0-31.0) H 01/05/19 04:41 MCHC 33.4 g/dL (33.0-37.0) 01/05/19 04:41 RDW 14.5 % (11.5-14.5) 01/05/19 04:41 Plt Count 177 K/uL (130-400) 01/05/19 04:41 MPV 9.4 fl (7.2-11.7) 01/05/19 04:41 Neut % (Auto) 84.5 % (50.0-75.0) H 01/05/19 04:41 Lymph % (Auto) 9.6 % (20.0-40.0) L 01/05/19 04:41 [place] % (Auto) 5.8 % (0.0-10.0) 01/05/19 04:41 Eos % (Auto) 0.0 % (0.0-4.0) 01/05/19 04:41 Baso % (Auto) 0.1 % (0.0-2.0) 01/05/19 04:41 Neut # (Auto) 3.2 K/uL (1.8-7.0) 01/05/19 04:41 Lymph # (Auto) 0.4 K/uL (1.0-4.3) L 01/05/19 04:41 [place] # (Auto) 0.2 K/uL (0.0-0.8) 01/05/19 04:41 Eos # (Auto) 0.0 K/uL (0.0-0.7) 01/05/19 04:41 Baso # (Auto) 0.0 K/uL (0.0-0.2) 01/05/19 04:41 Neutrophils % (Manual) 90 % (42-75) H 01/03/19 21:10 Band Neutrophils % 1 % (0-2) 01/03/19 21:10 Lymphocytes % (Manual) 6 % (20-50) L 01/03/19 21:10 Monocytes % (Manual) 3 % (0-10) 01/03/19 21:10 Platelet Estimate Normal (NORMAL) 01/03/19 21:10 Hypochromasia (manual) Slight 01/03/19 21:10 Microcytosis (manual) Slight 01/03/19 21:10 Ovalocytes Slight 01/03/19 21:10 PT 12.6 Seconds (9.8-13.1) 01/03/19 21:53 INR 1.1 01/03/19 21:53 APTT 28.5 Seconds (25.6-37.1) 01/03/19 21:53 pO2 38 mm/Hg (30-55) 01/03/19 20:51 VBG pH 7.36 (7.32-7.43) 01/03/19 20:51 VBG pCO2 59 mmHg (40-60) 01/03/19 20:51 VBG HCO3 28.9 mmol/L 01/03/19 20:51 VBG Total CO2 35.1 mmol/L (22-28) H 01/03/19 20:51 VBG O2 Sat (Calc) 75.2 % (40-65) H 01/03/19 20:51 VBG Base Excess 6.0 mmol/L (0.0-2.0) H 01/03/19 20:51 VBG Potassium 3.9 mmol/L (3.6-5.2) 01/03/19 20:51 Sodium 132.0 mmol/L (132-148) 01/03/19 20:51 Chloride 98.0 mmol/L (98-107) 01/03/19 20:51 Glucose 121 mg/dL (65-105) H 01/03/19 20:51 Lactate 1.2 mmol/L (0.7-2.1) 01/03/19 20:51 FiO2 21.0 % 01/03/19 20:51 Sodium 135 mmol/l (132-148) 01/05/19 04:41 Potassium 3.8 MMOL/L (3.6-5.0) 01/05/19 04:41 Chloride 95 mmol/L (98-107) L 01/05/19 04:41 Carbon Dioxide 30 mmol/L (22-30) 01/05/19 04:41 Anion Gap 14 (10-20) 01/05/19 04:41 BUN 27 mg/dl (7-17) H 01/05/19 04:41 Creatinine 1.0 mg/dl (0.7-1.2) 01/05/19 04:41 Est GFR ( Amer) > 60 01/05/19 04:41 Est GFR (Non-Af Amer) 52 01/05/19 04:41 Random Glucose 170 mg/dL (65-105) H 01/05/19 04:41 Calcium 8.9 mg/dL (8.4-10.2) 01/05/19 04:41 Phosphorus 3.9 mg/dl (2.5-4.5) 01/03/19 21:10 Magnesium 1.9 MG/DL (1.6-2.3) 01/03/19 21:10 Total Bilirubin 0.1 mg/dl (0.2-1.3) L 01/05/19 04:41 AST 29 U/L (14-36) 01/05/19 04:41 ALT 25 U/L (9-52) 01/05/19 04:41 Alkaline Phosphatase 87 U/L (38-126) 01/05/19 04:41 Troponin I 0.0980 ng/mL (0.00-0.120) 01/03/19 21:10 NT-Pro-B Natriuret Pep 1590 pg/ml (0-900) H 01/04/19 11:30 Total Protein 6.4 G/DL (6.3-8.2) 01/05/19 04:41 Albumin 3.4 g/dL (3.5-5.0) L 01/05/19 04:41 Globulin 3.0 gm/dL (2.2-3.9) 01/05/19 04:41 Albumin/Globulin Ratio 1.2 (1.0-2.1) 01/05/19 04:41 Free T4 1.08 ng/dL (0.78-2.19) 01/05/19 04:41 TSH 3rd Generation 0.05 mIU/ML (0.46-4.68) L 01/05/19 04:41 Venous Blood Potassium 3.9 mmol/L (3.6-5.2) 01/03/19 20:51 Urine Color Yellow (YELLOW) 01/03/19 21:53 Urine Clarity Slighty-cloudy (Clear) 01/03/19 21:53 Urine pH 7.0 (5.0-8.0) 01/03/19 21:53 Ur Specific [place] 1.018 (1.003-1.030) 01/03/19 21:53 Urine Protein 30 mg/dL (NEGATIVE) 01/03/19 21:53 Urine Glucose (UA) Neg mg/dL (NEGATIVE) 01/03/19 21:53 Urine Ketones Trace mg/dL (NEGATIVE) 01/03/19 21:53 Urine Blood Moderate (NEGATIVE) 01/03/19 21:53 Urine Nitrate Negative (NEGATIVE) 01/03/19 21:53 Urine Bilirubin Negative (NEGATIVE) 01/03/19 21:53 Urine Urobilinogen 0.2-1.0 mg/dL (0.2-1.0) 01/03/19 21:53 Ur Leukocyte Esterase Neg [place]/uL (Negative) 01/03/19 21:53 Urine RBC (Auto) 27 /hpf (0-3) H 01/03/19 21:53 Urine Microscopic WBC 1 /hpf (0-5) 01/03/19 21:53 Ur Squamous Epith Cells 1 /hpf (0-5) 01/03/19 21:53 Influenza Typ A,B (EIA) Negative for flu a/b (NEGATIVE) 01/03/19 21:08 Ur L.pneumophila Ag Negative (NEGATIVE) 01/04/19 12:00 Mycoplasma pneumon IgG 1.12 (<=0.90) H 01/04/19 08:30 Attending/Attestation - Attestation I have personally seen and examined this patient.: Yes I have fully participated in the care of the patient.: Yes I have reviewed all pertinent clinical information, including history, physical exam and plan: Yes Notes (Text): Bacterial Pneumonia Reactive Airway Dis CHF exacerbation diastolic and systolic dysfunction EF=55% Dementia, chronic , prob Alzheimer's Hypertensive Urgency Thyroid Cyst - Received IV Zosyn and Azithro- fever resolved - Chest CT Marked cardiomegaly. Minor vague ground-glass opacities seen in the left lower lung field and left lingular region nonspecific. Rule out sequela of air trapping, pneumonitis or some residual pulmonary venous congestive changes.. Enlarged lobulated thyroid gland left lobe larger than right with several tiny calcifications seen in the inferior aspect left lobe. - Pro BNP elevated - IV Lasix, WILLIAM inhibitor , BB and hydralazine started - IV Solumedrol started - will taper dose, cont Xopenex - Physical therapy rec [facility] placement -BP uncontrolled - cont Losartan, Lasix, Hydralazine, and Toprol - cont home med- Lorazepam - as per family pt takes this 2mg bid and has been on it for years - Thyroid Sonogram Z: thyroid cyst - ff up as outpt - will d/c pt to [facility] , to cont IV Ceftriaxone and Azithro x 1 more week, taper IV Solumedrol
[2019-01-06] MEDS ORDERED: Levalbuterol 0.63 MG/3 ML Inhal Soln UD INH ONE (18:32)
--- NOTE | 2019-01-06 19:33 | CP.PCM.PCO ---
Assessment & Plan - Assessment and Plan (Free Text) Assessment: Pt noted to have elevated BP (190's systolic), asymptomatic. Was given IV and oral antihypertensive with minimal improvement. On exam, appears comfortable, lung exam notable for scattered inspiratory and expiratory wheezing and rhonchi, no use of accessory muscles, +2 pedal edema, O2 sat 98 on rm air. Will given Lasix 20mg IV for now and monitor vitals closely. Will keep overnight.
[2019-01-07] MEDS: Piperacillin/Tazobact 3.375 GM in Sodium Chloride 0.9% 100 ML IVPB SCH (01:23)
[2019-01-07] MEDS: Levalbuterol 0.63 MG/3 ML Inhal Soln UD INH SCH (02:23)
[2019-01-07 05:47] LABS: BASO % 0.1 % (0.0-2.0); HEMOGLOBIN 11.5 g/dL (12.0-16.0); LYMPH # 0.4 K/uL (1.0-4.3); LYMPH % 6.9 % (20.0-40.0); MEAN CELL VOLUME 95.4 fl (81.0-99.0); MEAN CORPUSCULAR HEMOGLOBIN 30.8 pg (27.0-31.0); MEAN CORPUSCULAR HGB CONC 32.3 g/dL (33.0-37.0); MEAN PLATELET VOLUME 9.8 fl (7.2-11.7); MONO # 0.3 K/uL (0.0-0.8); MONO % 4.5 % (0.0-10.0); NEUT # 5.5 K/uL (1.8-7.0); NEUT % 88.5 % (50.0-75.0); NRBC % 0.1 % (0.0-0.0); PLATELET COUNT 181 K/uL (130-400); RBC 3.75 Mil/uL (3.80-5.20); RED CELL DISTRIBUTION WIDTH 14.2 % (11.5-14.5); WHITE BLOOD COUNT 6.2 K/uL (4.8-10.8)
[2019-01-07 05:58] LABS: ALB/GLOB RATIO 1.2 (1.0-2.1); ALBUMIN 3.5 g/dL (3.5-5.0); ALT/SGPT 26 U/L (9-52); AST/SGOT 23 U/L (14-36); BLOOD UREA NITROGEN 26 mg/dl (7-17); CALCIUM 9.1 mg/dL (8.4-10.2); GFR NON-AFRICAN AMERICAN 59
--- NOTE | 2019-01-07 08:01 | RAD ---
Date of service: 01/07/2019 HISTORY: wheezing, sob COMPARISON: Chest radiographs 01/03/2019. FINDINGS: LUNGS: No active pulmonary disease. PLEURA: No significant pleural effusion identified, no pneumothorax apparent. CARDIOVASCULAR: Calcific atherosclerotic changes are seen related to the thoracic aorta. Mild cardiomegaly appears unchanged. No pulmonary vascular congestion. OSSEOUS STRUCTURES: No significant abnormalities. VISUALIZED UPPER ABDOMEN: Surgical clips reiterated right upper quadrant abdomen. OTHER FINDINGS: None. IMPRESSION: Mild cardiomegaly appears stable. No interval infiltrate, pleural effusion or pulmonary vascular congestion appreciable.
[2019-01-07 08:20] VITALS: RESP 20; TEMP 98.4
[2019-01-07] MEDS: Pantoprazole 40 mg EC Tab PO SCH (08:57)
[2019-01-07] MEDS: Donepezil HCl 10 MG ODT PO SCH (09:00)
[2019-01-07] MEDS ORDERED: HCTZ/Losartan 12.5/50 Tab PO SCH (09:00)
[2019-01-07] MEDS: Venlafaxine 150 mg ER Cap PO SCH (09:00)
[2019-01-07] MEDS: Metoprolol Succinate 50 mg XL Tab PO SCH (09:00)
[2019-01-07] MEDS: Enoxaparin 40 mg Syringe SC SCH (09:01)
[2019-01-07 10:50] LABS: LYMPHOCYTE 8 % (20-50); MONOCYTE 4 % (0-10); NEUTROPHIL 88 % (42-75); TOTAL CELLS COUNTED 100
[2019-01-07 10:51] LABS: PLATELET ESTIMATE NORMAL (NORMAL)
[2019-01-07 10:53] LABS: HYPOCHROMIC SLIGHT; TOXIC GRANULATION PRESENT
[2019-01-07 12:30] VITALS: BP 167/66; PULSE 63; O2SAT 100
--- NOTE | 2019-01-07 12:39 | CP.PCM.PN ---
Subjective - Date & Time of Evaluation Date of Evaluation: 01/07/19 Time of Evaluation: 09:00 - Subjective Subjective: Patient seen and evaluated during morning rounds in AM. Patient sitting in bed, NAD. Patient had HTN urgency yesterday night for which she received Enalaprilet 1.25 IVP x 2, Lasix 20 IVP x 2, Hydralazine 50 PO once with improvement in BP. Patient remained asymptomatic during that time. Denies any CP, dizziness, nausea, vomiting, headache or SOB. Patient tolerating dysphagia diet well PO. VSS with O2 2L NC. Objective - Vital Signs/Intake and Output Vital Signs (last 24 hours): Temp Pulse Resp BP Pulse Ox 98.4 F 63 20 167/66 H 100 01/07/19 12:29 01/07/19 12:29 01/07/19 12:29 01/07/19 12:29 01/07/19 12:29 - Medications Medications: Current Medications Donepezil HCl (Aricept Odt) 10 mg PO DAILY [facility] Last Admin: 01/07/19 09:00 Dose: 10 mg Furosemide (Lasix) 20 mg IVP DAILY [facility] HCTZ/Losartan Potassium (Hyzaar 12.5 Mg-50 Mg) 2 tab PO DAILY [facility] Last Admin: 01/07/19 09:55 Dose: 2 tab Levalbuterol HCl (Xopenex) 0.63 mg INH RQ6 [facility] Last Admin: 01/07/19 02:23 Dose: Not Given Lorazepam (Ativan) 2 mg PO BID [facility] Last Admin: 01/07/19 09:55 Dose: 2 mg Methylprednisolone (Solu-Medrol) 60 mg IV Q12 [facility] Last Admin: 01/07/19 08:58 Dose: 60 mg Metoprolol Succinate (Toprol Xl) 50 mg PO DAILY [facility] Last Admin: 01/07/19 09:00 Dose: 50 mg Oxybutynin Chloride (Ditropan Tab) 5 mg PO DAILY [facility] Last Admin: 01/07/19 09:00 Dose: 5 mg Oxybutynin Chloride (Ditropan Tab) 10 mg PO HS [facility] Last Admin: 01/06/19 21:13 Dose: 10 mg Pantoprazole Sodium (Protonix Ec Tab) 40 mg PO DAILY [facility] Last Admin: 01/07/19 08:57 Dose: 40 mg Venlafaxine HCl (Effexor Xr) 150 mg PO DAILY [facility] Last Admin: 01/07/19 09:00 Dose: 150 mg - Labs Labs: 01/07/19 04:20 01/07/19 04:20 PT 12.6 Seconds (9.8-13.1) 01/03/19 21:53 INR 1.1 01/03/19 21:53 APTT 28.5 Seconds (25.6-37.1) 01/03/19 21:53 - Constitutional Appears: Well, No Acute Distress - Head Exam Head Exam: ATRAUMATIC, NORMAL INSPECTION, NORMOCEPHALIC - Eye Exam Eye Exam: EOMI, Normal appearance - ENT Exam ENT Exam: Mucous Membranes Moist - Neck Exam Neck Exam: Full ROM - Respiratory Exam Respiratory Exam: Rhonchi, Wheezes. absent: Accessory Muscle Use, Respiratory Distress - Cardiovascular Exam Cardiovascular Exam: REGULAR RHYTHM, +S1, +S2. absent: Murmur - GI/Abdominal Exam GI & Abdominal Exam: Soft, Tenderness, Normal Bowel Sounds - Extremities Exam Extremities Exam: absent: Calf Tenderness, Pedal Edema, Tenderness - Neurological Exam Neurological Exam: Alert, Awake, Oriented x3 - Psychiatric Exam Psychiatric exam: Normal Affect, Normal Mood - Skin Skin Exam: Dry, Intact, Normal Color, Warm Assessment and Plan - Assessment and Plan (Free Text) Assessment: Pt is an 88 y/o female with hx of Dementia, Depression, IBS, HTN, OA, Chronic Cough, Urinary Incontinence brought to ED by daughter who stated patient had a worsening non productive cough, fevers, confusion and admitted for Pneumonia. Plan: Acute bronchitis vs bacterial pneumonia -CXR: Questionable bibasilar LL infiltraes(No active disease as per final read) -CT Chest: Minor vague ground-glass opacities seen in the left lower lung field and left lingular region. Enlarged lobulated thyroid gland left lobe -Continue azithromycin and zosyn -Legionella Neg, Strep, mycoplasma, influenza and Blood Cx neg -discharge on Azithromycin 500 PO daily x 5 day and ceftriaxone 1g QD HTN - Had HTN urgency yesterday - S/P Enalaprilet 1.25 IVP x 2, Lasix 20 IVP x 2, Hydralazine 50 PO once and norvasc 5 mg with improvement in BP -Continue on Metoprolol XL 50 mg Po daily -Start Losartan/HCTZ 100/12.5 mg PO daily -D/C Lisinopril 10 mg daily -Continue to monitor vitals Shortness of breath - Likely due to CHF/pneumonitis/RAD - CXR: Cardiomegaly with mild venous congestion - EKG: NSR, Borderline EKG, Possible LVH - CT Chest: Marked cardiomegaly. Minor vague ground-glass opacities seen in the left lower lung field and left lingular region. Enlarged lobulated thyroid gland left lobe -ECHO: EF 55-60% with Mild LVH, Mild-Mod AR - Continue Zopanex to Q6 from Q8hr - Continue Solumedrol 60 mg IV Q12H Thyroid mass - TSH 0.05, Free T4 1.08 - Thyroid US showed complex and cystic mass, Recs, F/U FNA and radionuclide scan on outpatient basis. UTI -UA + RBC 27 -UCx no growth Dementia -C/W home meds Urinary incontinence - Continue home meds. Diet -heart healthy diet Prophylaxis DVT - Lovenox 40 mg SC daily GI - Pantoprazole 40 mg IVP daily See updated Discharge summary for full discharge report and DC medications
== END 2019-01-07 12:45 | DRG 193 ==
LOC: H.ER 18:36 → H.ERHOLD 22:53 → H.MEDSURG1 01-04 00:38 → H.TEL 01-07 02:29
PROVIDERS: ADMIT Internal Medicine; ATTEND Internal Medicine
DX: J15.9 Unspecified bacterial pneumonia (principal); I50.41 Acute combined systolic (congestive) and diastolic (congestive) heart failure; N39.0 Urinary tract infection, site not specified; I16.0 Hypertensive urgency; I11.0 Hypertensive heart disease with heart failure; E04.1 Nontoxic single thyroid nodule; G30.9 Alzheimer's disease, unspecified; F02.80 Dementia in other diseases classified elsewhere, unspecified severity, without behavioral disturbance, psychotic disturbance, mood disturbance, and anxiety; R32 Unspecified urinary incontinence; M19.90 Unspecified osteoarthritis, unspecified site; K58.9 Irritable bowel syndrome, unspecified; F32.9 Major depressive disorder, single episode, unspecified; J45.909 Unspecified asthma, uncomplicated